=== PATIENT | male | born 1960 | race Caucasian/White ===

== ENCOUNTER 2018-06-02 08:12 | Outpatient (CLI) | payer OTHER | END 2018-06-02 09:25 | LOC: D.OPS 08:12 | DX: K44.9 Diaphragmatic hernia without obstruction or gangrene (principal); Z01.812 Encounter for preprocedural laboratory examination ==

== ENCOUNTER 2018-07-08 07:24 | Inpatient (IN) | payer MEDICAID ==
[2018-07-08] VITALS (12 sets, daily range): BP systolic 118–150; BP diastolic 71–85; BMI 34.0
[~2018-07-08] VITALS: Ht 175.3 cm; Wt 104.3 kg
--- NOTE | ~2018-07-08 | OP ---
PATIENT NAME: PANCHITO FERNANDEZ MEDICAL RECORD: [id number] :64 LOCATION:[facility] ADMISSION DATE:07/08/18 SURGEON: BIRD GREENFIELD MD DATE OF OPERATION: 07/08/2018 RAILROAD WORKER'S NOTE I assisted Dr. Justo Mckeon with the laparoscopic hiatal hernia repair and Precious fundoplication. My involvement in the operation included some dissection along the greater curve of the stomach with the Harmonic scalpel, dissection of the left katharina of the diaphragm, retraction of tissues, manipulation of tissues, and irrigation and suctioning. I ran the camera for a period of time. Assistance with removing the very large gastric fat pad. I scrubbed out as the trocar sites were being closed. TRANSINT:[id number] Voice Confirmation ID: [id number] DOCUMENT ID: [id number] BIRD GREENFIELD MD at 1544 CC: [id number] DICTATION DATE: 07/08/18 1635 MOLDER OPERATOR: 07/08/18 1731 DIS IN 07/14/18 [place] [id number] [place] [id number]
--- NOTE | ~2018-07-08 | MORECARE ---
CASE MANAGEMENT DISCHARGE SUMMARY PATIENT: PANCHITO FERNANDEZ UNIT: [id number] ADM DATE: 07/08/18 AGE: 57 : 64 SEX: M ROOM/BED: D.2209 AUTHOR: BEV GODINEZ PHYSICIAN: REFERRING PHYSICIAN: BIRD GREENFIELD MD DATE OF SERVICE: 07/14/18 Discharge Plan Patient Name: PANCHITO [facility]DE[facility] [facility] 1960 Planned Disposition: Court\Law Enforcement Anticipated Discharge Date: Discharge Date: Expected LOS: Initial Reviewer: [email or web address] Initial Review Date: 07/10/2018 Generated: 07/14/18 11:33 am Comments DCP- Discharge Planning Updated by [email or web address]: Liliana Royal on 07/14/18 9:[address] PATIENT WILL BE DISCHARGING BACK TO THE [facility] AND [facility] WILL SET UP TRANSPORTATION. FAXED CLINICAL INFORMATION TO [facility], NURSE TO CALL REPORT DCP- Discharge Planning Updated by [email or web address]: Amanda Gallardo on 07/10/18 2:[address] Patient Name: PANCHITO FERNANDEZ Admission Status: Elective Accout number: [id number] Admission Date: 07-08-2018 : 1960 Admission Diagnosis:GASTRO-ESOPHAGEAL REFLUX DISEASE WITHOUT ESOPHAGITIS Attending: BIRD GREENFIELD Current LOS: 2 Anticipated DC Date: Planned Disposition: Court\Law Enforcement Primary Insurance: [place] [employer] Discharge Planning Comments: Patient is a resident of [facility]. DCP to return to [facility] at discharge. CM will continue to follow and assist with discharge planning/needs. Optometric Aide: Amanda Gallardo Last DP export: 07/10/18 2:33 Patient Name: PANCHITO FERNANDEZ Page [id number] at 1033 All edits/amendments must be made on the electronic document DICTATION DATE: 07/14/18 1032 PERSONAL BANKER: IDRIS 07/14/18 1032 RPT#: [id number] DC DATE: STATUS: ADM IN [facility] [address] [place] [address] END OF REPORT
--- NOTE | ~2018-07-08 | MORECARE ---
CASE MANAGEMENT DISCHARGE SUMMARY PATIENT: PANCHITO FERNANDEZ UNIT: [id number] ADM DATE: 07/08/18 AGE: 57 : 64 SEX: M ROOM/BED: D.2209 AUTHOR: BEV GODINEZ PHYSICIAN: REFERRING PHYSICIAN: BIRD GREENFIELD MD DATE OF SERVICE: 07/10/18 Discharge Plan Patient Name: PANCHITO FERNANDEZ Facility: [facility]:[place] : 1960 Planned Disposition: Court\Law Enforcement Anticipated Discharge Date: Discharge Date: Expected LOS: Initial Reviewer: [email or web address] Initial Review Date: 07/10/2018 Generated: 07/10/18 4:33 pm Comments DCP- Discharge Planning Updated by [email or web address]: Amanda Gallardo on 07/10/18 2:[address] Patient Name: PANCHITO FERNANDEZ Admission Status: Elective Accout number: [id number] Admission Date: 07-08-2018 : 1960 Admission Diagnosis:GASTRO-ESOPHAGEAL REFLUX DISEASE WITHOUT ESOPHAGITIS Attending: BIRD GREENFIELD Current LOS: 2 Anticipated DC Date: Planned Disposition: Court\Law Enforcement Primary Insurance: [place] DEPT OF [employer] Discharge Planning Comments: Patient is a resident of [facility]. DCP to return to [facility] at discharge. CM will continue to follow and assist with discharge planning/needs. Java Software Developer: Amanda Gallardo Patient Name: PANCHITO FERNANDEZ Page [id number] at 1533 All edits/amendments must be made on the electronic document DICTATION DATE: 07/10/18 153 PHYSICAL PLANT MANAGER: IDRIS 07/10/18 153 RPT#: [id number] DC DATE: STATUS: ADM IN [facility] [address] [facility] [place] [address] END OF REPORT
--- NOTE | ~2018-07-08 | MORECARE ---
CASE MANAGEMENT DISCHARGE SUMMARY PATIENT: PANCHITO FERNANDEZ UNIT: [id number] ADM DATE: 07/08/18 AGE: 57 : 64 SEX: M ROOM/BED: D.2209 AUTHOR: BEV GODINEZ PHYSICIAN: REFERRING PHYSICIAN: BIRD GREENFIELD MD DATE OF SERVICE: 07/16/18 Discharge Plan Patient Name: PANCHITO FERNANDEZ Facility: [facility]:[place] : 1960 Planned Disposition: Court\Law Enforcement Anticipated Discharge Date: Discharge Date: 07/14/2018 Expected LOS: Initial Reviewer: [email or web address] Initial Review Date: 07/10/2018 Generated: 07/16/18 11:35 am Comments DCP- Discharge Planning Updated by [email or web address]: Liliana Royal on 07/14/18 9:[address] PATIENT WILL BE DISCHARGING BACK TO THE [facility] AND [facility] WILL SET UP TRANSPORTATION. FAXED CLINICAL INFORMATION TO [facility], NURSE TO CALL REPORT DCP- Discharge Planning Updated by [email or web address]: Amanda Gallardo on 07/10/18 2:[address] Patient Name: PANCHITO FERNANDEZ Admission Status: Elective Accout number: [id number] Admission Date: 07-08-2018 : 1960 Admission Diagnosis:GASTRO-ESOPHAGEAL REFLUX DISEASE WITHOUT ESOPHAGITIS Attending: BIRD GREENFIELD Current LOS: 2 Anticipated DC Date: Planned Disposition: Court\Law Enforcement Primary Insurance: [place] DE[employer] Discharge Planning Comments: Patient is a resident of [facility]. DCP to return to [facility] at discharge. CM will continue to follow and assist with discharge planning/needs. Finishing Machine Operator Automatic: Amanda Gallardo Last DP export: 07/14/18 9:33 Patient Name: PANCHITO FERNANDEZ Page [phone] at 1035 All edits/amendments must be made on the electronic document DICTATION DATE: 07/16/18 1034 DAY SPA MANAGER: IDRIS 07/16/18 1034 RPT#: [id number] DC DATE:07/14/18 STATUS: DIS IN [facility] [address] [place] [address] END OF REPORT
[2018-07-08] MEDS ORDERED: TOPROL XL25 MG (08:33)
[2018-07-08] MEDS ORDERED: ZESTRIL20 MG (08:33)
[2018-07-08] MEDS ORDERED: ALLER-CHLOR4 MG PO (08:34)
[2018-07-08] MEDS ORDERED: ZANTAC300 MG (08:34)
[2018-07-08] MEDS ORDERED: TUMS X-STR300 MG PO (08:35)
[2018-07-08] MEDS ORDERED: XOPENEX HFA15 GM INH (08:36)
[2018-07-08] MEDS ORDERED: LIPITOR20 MG PO (08:36)
[2018-07-08] MEDS ORDERED: CYMBALTA60 MG PO (08:37)
[2018-07-08] MEDS ORDERED: FLOVENT HFA 22012 GM INH (08:40)
[2018-07-08 09:29] LABS: HEMATOCRIT 38.9 % (42.0-54.0); HEMOGLOBIN 13.2 g/dL (13.5-17.5); MCH 29.8 pg (26.0-34.0); MCHC 33.9 g/dL (31.0-37.0); MCV 87.8 fL (80.0-100.0); MEAN PLATELET VOLUME 10.8 fL (7.4-10.4); RBC 4.43 10x6/uL (4.20-6.10); RDW 13.7 % (11.5-14.5); WBC 10.2 10x3/uL (4.8-10.8)
[2018-07-09] VITALS (7 sets, daily range): BP systolic 113–169; BP diastolic 70–85; BMI 34.0
[2018-07-09 05:24] LABS: BASOPHILS 0.1 % (0-2); EOSINOPHILS 0 % (0-7); HEMATOCRIT 33.8 % (42.0-54.0); HEMOGLOBIN 11.1 g/dL (13.5-17.5); IMMATURE GRANULOCYTES 0.2 % (0-5); LYMPHOCYTES 7.3 % (15-50); MCH 28.9 pg (26.0-34.0); MCHC 32.8 g/dL (31.0-37.0); MEAN PLATELET VOLUME 11.1 fL (7.4-10.4); MONOCYTES 5.5 % (2-11); NEUTROPHILS 86.9 % (40-80); PLATELET COUNT 181 10x3/uL (130-400); RBC 3.84 10x6/uL (4.20-6.10); RDW 13.8 % (11.5-14.5); WBC 12.7 10x3/uL (4.8-10.8)
[2018-07-09 05:40] LABS: ALBUMIN 3.2 g/dL (3.4-5.0); ANION GAP 11.5 mmol/L (8-16); BILIRUBIN - TOTAL 0.48 mg/dL (0.2-1.3); CALCIUM 8.6 mg/dL (8.5-10.1); CREATININE - SERUM 1.1 mg/dL (0.6-1.3); PROTEIN - SERUM 6.6 g/dL (6.4-8.2)
[2018-07-09 05:50] LABS: POTASSIUM - SERUM 4.5 mmol/L (3.5-5.1)
[2018-07-10 04:00] VITALS: BP 140/77
[2018-07-10 08:27] VITALS: BP 157/95
[2018-07-10 09:22] LABS: BASOPHILS 0.1 % (0-2); EOSINOPHILS 0 % (0-7); HEMATOCRIT 33.8 % (42.0-54.0); HEMOGLOBIN 11.2 g/dL (13.5-17.5); IMMATURE GRANULOCYTES 0.3 % (0-5); LYMPHOCYTES 8.5 % (15-50); MCH 29.5 pg (26.0-34.0); MCHC 33.1 g/dL (31.0-37.0); MCV 88.9 fL (80.0-100.0); MEAN PLATELET VOLUME 10.4 fL (7.4-10.4); MONOCYTES 8.8 % (2-11); NEUTROPHILS 82.3 % (40-80); PLATELET COUNT 163 10x3/uL (130-400); RDW 14.5 % (11.5-14.5)
[2018-07-10 09:26] LABS: WBC 18.8 10x3/uL (4.8-10.8)
[2018-07-10 09:34] LABS: ANION GAP 13.2 mmol/L (8-16); CALCIUM 8.5 mg/dL (8.5-10.1); CARBON DIOXIDE 26.6 mmol/L (21.0-32.0); CREATININE - SERUM 1.1 mg/dL (0.6-1.3); MAGNESIUM - SERUM 2.3 mg/dL (1.8-2.4); POTASSIUM - SERUM 3.8 mmol/L (3.5-5.1)
[2018-07-10 12:04] VITALS: Ht 175.3 cm; Wt 104.3 kg
[2018-07-10 16:32] VITALS: BP 107/74
[2018-07-10 19:55] VITALS: BP 128/86
[2018-07-11] VITALS: BP 141/80
[2018-07-11 04:00] VITALS: BP 129/73
[2018-07-11 08:48] VITALS: BP 149/77
[2018-07-11 09:24] LABS: BASOPHILS 0.5 % (0-2); EOSINOPHILS 0.4 % (0-7); HEMATOCRIT 31.2 % (42.0-54.0); HEMOGLOBIN 10.6 g/dL (13.5-17.5); IMMATURE GRANULOCYTES 0.3 % (0-5); LYMPHOCYTES 8.1 % (15-50); MCH 30.2 pg (26.0-34.0); MCV 88.9 fL (80.0-100.0); MEAN PLATELET VOLUME 12.1 fL (7.4-10.4); MONOCYTES 6.3 % (2-11); NEUTROPHILS 84.4 % (40-80); RBC 3.51 10x6/uL (4.20-6.10); RDW 15.1 % (11.5-14.5); WBC 15.9 10x3/uL (4.8-10.8)
[2018-07-11 09:27] LABS: PLATELET COUNT 201 10x3/uL (130-400)
[2018-07-11 09:31] LABS: CALC OSMOLALITY 272 mosm/kg (275-300); CALCIUM 7.5 mg/dL (8.5-10.1); CARBON DIOXIDE 26.2 mmol/L (21.0-32.0); CHLORIDE - SERUM 101 mmol/L (98-107); GLUCOSE 124 mg/dL (74-106); POTASSIUM - SERUM 3.8 mmol/L (3.5-5.1); SODIUM 135 mmol/L (136-145); UREA NITROGEN 18 mg/dL (7-18); eGFR NON AFRICAN AMERICAN 82 mL/min (90-120)
[2018-07-11 13:06] VITALS: BP 122/77
[2018-07-11 16:00] VITALS: BP 135/70
[2018-07-11 20:30] VITALS: BP 127/70
[2018-07-12 00:30] VITALS: BP 131/79
[2018-07-12 04:30] VITALS: BP 147/80
[2018-07-12 06:54] LABS: BASOPHILS 0.1 % (0-2); HEMATOCRIT 30.2 % (42.0-54.0); IMMATURE GRANULOCYTES 0.2 % (0-5); LYMPHOCYTES 10.2 % (15-50); MCH 29.2 pg (26.0-34.0); MCHC 33.1 g/dL (31.0-37.0); MCV 88.3 fL (80.0-100.0); MEAN PLATELET VOLUME 10.6 fL (7.4-10.4); MONOCYTES 7.3 % (2-11); NEUTROPHILS 81.2 % (40-80); RBC 3.42 10x6/uL (4.20-6.10); RDW 14.4 % (11.5-14.5); WBC 16.3 10x3/uL (4.8-10.8)
[2018-07-12 06:56] LABS: PLATELET COUNT 152 10x3/uL (130-400)
[2018-07-12 07:10] LABS: CALC OSMOLALITY 268 mosm/kg (275-300); CARBON DIOXIDE 24.8 mmol/L (21.0-32.0); CHLORIDE - SERUM 100 mmol/L (98-107); CREATININE - SERUM 0.9 mg/dL (0.6-1.3); GLUCOSE 114 mg/dL (74-106); POTASSIUM - SERUM 3.8 mmol/L (3.5-5.1); SODIUM 133 mmol/L (136-145); UREA NITROGEN 17 mg/dL (7-18); eGFR NON AFRICAN AMERICAN > 90 mL/min (90-120)
[2018-07-12 08:35] VITALS: BP 142/79
[2018-07-12 15:05] VITALS: BP 150/75
[2018-07-12 16:06] VITALS: BP 129/79
[2018-07-12 20:00] VITALS: BP 136/68
[2018-07-13] VITALS: BP 133/74
[2018-07-13 05:12] LABS: BASOPHILS 0.2 % (0-2); EOSINOPHILS 1.3 % (0-7); HEMATOCRIT 30.1 % (42.0-54.0); HEMOGLOBIN 9.8 g/dL (13.5-17.5); IMMATURE GRANULOCYTES 0.4 % (0-5); LYMPHOCYTES 11.1 % (15-50); MCHC 32.6 g/dL (31.0-37.0); MCV 89.1 fL (80.0-100.0); MEAN PLATELET VOLUME 10.5 fL (7.4-10.4); MONOCYTES 8.6 % (2-11); NEUTROPHILS 78.4 % (40-80); RBC 3.38 10x6/uL (4.20-6.10); RDW 14.3 % (11.5-14.5); WBC 13.1 10x3/uL (4.8-10.8)
[2018-07-13 05:16] LABS: PLATELET COUNT 210 10x3/uL (130-400)
[2018-07-13 05:23] LABS: CALC OSMOLALITY 271 mosm/kg (275-300); CALCIUM 7.8 mg/dL (8.5-10.1); CARBON DIOXIDE 26.1 mmol/L (21.0-32.0); CHLORIDE - SERUM 100 mmol/L (98-107); CREATININE - SERUM 0.9 mg/dL (0.6-1.3); GLUCOSE 105 mg/dL (74-106); POTASSIUM - SERUM 3.9 mmol/L (3.5-5.1); SODIUM 135 mmol/L (136-145); UREA NITROGEN 18 mg/dL (7-18); eGFR NON AFRICAN AMERICAN > 90 mL/min (90-120)
[2018-07-13 05:34] VITALS: BP 142/82
[2018-07-13 08:01] VITALS: BP 139/84
[2018-07-13 12:32] VITALS: BP 144/78
[2018-07-13 15:58] VITALS: BP 127/76
[2018-07-13 21:21] VITALS: BP 130/80
[2018-07-14 00:35] VITALS: BP 143/77
[2018-07-14 05:56] LABS: BASOPHILS 0.1 % (0-2); EOSINOPHILS 2.1 % (0-7); HEMATOCRIT 30.2 % (42.0-54.0); HEMOGLOBIN 9.8 g/dL (13.5-17.5); IMMATURE GRANULOCYTES 0.6 % (0-5); LYMPHOCYTES 14.8 % (15-50); MCH 28.9 pg (26.0-34.0); MCHC 32.5 g/dL (31.0-37.0); MCV 89.1 fL (80.0-100.0); MEAN PLATELET VOLUME 10.8 fL (7.4-10.4); MONOCYTES 9.7 % (2-11); NEUTROPHILS 72.7 % (40-80); PLATELET COUNT 226 10x3/uL (130-400); RBC 3.39 10x6/uL (4.20-6.10); RDW 14.4 % (11.5-14.5); WBC 10.8 10x3/uL (4.8-10.8)
[2018-07-14 06:21] LABS: CALC OSMOLALITY 270 mosm/kg (275-300); CALCIUM 7.9 mg/dL (8.5-10.1); CARBON DIOXIDE 26.3 mmol/L (21.0-32.0); CHLORIDE - SERUM 101 mmol/L (98-107); CREATININE - SERUM 0.7 mg/dL (0.6-1.3); GLUCOSE 90 mg/dL (74-106); POTASSIUM - SERUM 3.8 mmol/L (3.5-5.1); SODIUM 135 mmol/L (136-145); UREA NITROGEN 16 mg/dL (7-18); eGFR NON AFRICAN AMERICAN > 90 mL/min (90-120)
[2018-07-14 06:35] VITALS: BP 132/76
[2018-07-14 08:36] VITALS: BP 143/73
[2018-07-14] MEDS ORDERED: HYDROCODON-ACE1 EAC7 PO (09:54)
[2018-07-14] MEDS ORDERED: REGLAN10 MG PO (09:54)
[2018-07-14] MEDS ORDERED: MIRALAX17 GM PO (09:59)
[2018-07-14 11:46] VITALS: BP 147/74
== END 2018-07-14 14:57 | DRG 327 ==
LOC: D.OPS 07:24 → D.MS 16:30 → D.OPS 16:31 → D.MS 16:32
PROVIDERS: Anesthesiology; Surgery
PROC: 0BQT4ZZ Repair Diaphragm, Percutaneous Endoscopic Approach (ICD-10-PCS; principal; 2018-07-08 09:00)
PROC: 0DV44ZZ Restriction of Esophagogastric Junction, Percutaneous Endoscopic Approach (ICD-10-PCS; 2018-07-08 09:00)
DX: K44.9 Diaphragmatic hernia without obstruction or gangrene (principal); K56.7 Ileus, unspecified; K31.0 Acute dilatation of stomach; K21.9 Gastro-esophageal reflux disease without esophagitis; K22.70 Barrett's esophagus without dysplasia